=== PATIENT | male | born 1995 | race Caucasian/White ===

== ENCOUNTER 2024-09-06 10:19 | Emergency (ER) | payer SELFPAY ==
[2024-09-06 10:23] VITALS: BP 147/87; PULSE 84; RESP 17; TEMP 36.3; O2SAT 100; BMI 25.0
--- NOTE | 2024-09-06 10:34 | W.ED.MALEGU ---
HPI - Male Genitourinary General: Chief complaint: Urogenital-Male Stated complaint: urinary Time Seen by Provider: 09/06/24 10:32 Source: patient Mode of arrival: ambulatory Limitations: no limitations History of Present Illness: 29-year-old male states been having urinary retention. He states he has not been able to urinate since last night 730 states he is having lower abdominal pain feels like he needs to go. He states he had difficulty in the past but never to where he could not urinate. He denies any fever denies any dysuria. Associated symptoms: Deny nausea or vomiting Related Data Home Medications ?Medication ?Instructions ?Recorded ?Confirmed No Known Home Medications 09/06/24 09/06/24 Allergies Allergy/AdvReac Type Severity Reaction Status Date / Time No Known Allergies Allergy Verified 09/06/24 10:28 Review of Systems Const: Denies: fever(s), chills, body aches or change in appetite ENMT: Denies: throat pain or dental pain Card: Denies: chest pain Resp: Denies: dyspnea GI: Denies: abdominal pain, nausea, vomiting or diarrhea : Reports: difficulty urinating Musc: Denies: neck pain or back pain Skin/Breast: Denies: rash Neuro: Denies: headache(s) Physical Exam Const: COMMON NORMALS: no acute distress, patient oriented x3 and healthy appearing HENMT: COMMON NORMALS: normocephalic and atraumatic HEAD & SCALP: normocephalic and atraumatic Eye: COMMON NORMALS: conjunctivae normal CONJUNCTIVA: Yes conjunctivae normal Neck/C-Spine: COMMON NORMALS: full ROM and supple Chest: COMMONS NORMALS: normal inspection of the chest Resp: COMMON NORMALS: normal respiratory effort Cardio: COMMON NORMALS: regular rate RATE: regular rate GI: COMMON NORMALS: Normal to inspection, nondistended, normoactive bowel sounds present, Soft to palpation and no masses PALPATION: Yes Soft to palpation OTHER: tenderneess over bladder Extremity: COMMON NORMALS: normal to inspection and full ROM Neuro: COMMON NORMALS: patient oriented x3, moves all extremities and no focal motor deficits Psych: COMMON NORMALS: mental status grossly normal, Normal thought process present and cooperative THOUGHT PROCESS: Normal thought process present Skin: COMMON NORMALS: no rashes or lesions noted and no wounds GENERAL SKIN EXAM: no rashes or lesions noted Course Vital Signs: Vital signs: Vital Signs Temperature 97.4 F L 09/06/24 10:23 Pulse Rate 81 09/06/24 12:04 Respiratory Rate 17 09/06/24 10:23 Blood Pressure 134/88 09/06/24 12:04 Pulse Oximetry 97 09/06/24 12:04 Oxygen Delivery Me thod Room Air 09/06/24 12:04 MDM - Male Medical Decision Making Patient presents here with urinary retention not able to place a Moralez here did attempt multiple times kidney functions normal did speak to [facility] transfer patient there for higher level of care. Medical Records I reviewed the patient's medical records. Lab Data I reviewed the patient's lab results. 09/06/24 10:32 09/06/24 10:32 Laboratory Results WBC 5.95 10^3/uL (3.29-11.43) 09/06/24 10:32 RBC 4.92 10^6/uL (3.85-5.65) 09/06/24 10:32 Hgb 15.60 g/dL (11.27-16.99) 09/06/24 10:32 Hct 44.6 % (37-53) 09/06/24 10:32 MCV 90.7 fl (82-101) 09/06/24 10:32 MCH 31.7 pg (27-33) 09/06/24 10:32 MCHC 35.0 g/dL (30-55) 09/06/24 10:32 RDW 11.9 % (12.1-15.1) L 09/06/24 10:32 Plt Count 253 10^3/cmm (157-399) 09/06/24 10:32 MPV 8.5 fL (7.4-10.4) 09/06/24 10:32 Neut % (Auto) 55.0 % 09/06/24 10:32 Lymph % (Auto) 27.9 % 09/06/24 10:32 [place] % (Auto) 11.8 % 09/06/24 10:32 Eos % (Auto) 4.4 % 09/06/24 10:32 Baso % (Auto) 0.7 % 09/06/24 10:32 Neut # (Auto) 3.28 10^3/uL (1.8-7.7) 09/06/24 10:32 Lymph # (Auto) 1.7 10^3/uL (0.8-4.8) 09/06/24 10:32 [place] # (Auto) 0.7 10^3/uL (0.2-0.9) 09/06/24 10:32 Eos # (Auto) 0.3 10^3/uL (0.0-0.8) 09/06/24 10:32 Baso # (Auto) 0.0 10^3/uL (0.0-0.1) 09/06/24 10:32 Nucleated RBC % (auto) 0 % 09/06/24 10:32 Nucleated RBCs # 0.0 /100WBC 09/06/24 10:32 Sodium 141 mmol/L (136-145) 09/06/24 10:32 Potassium 4.1 mmol/L (3.5-5.1) 09/06/24 10:32 Chloride 104 mmol/L (98-107) 09/06/24 10:32 Carbon Dioxide 27 mmol/L (22-29) 09/06/24 10:32 Anion Gap 14.1 (5-19) 09/06/24 10:32 BUN 18 mg/dL (6-20) 09/06/24 10:32 Creatinine 0.8 mg/dL (0.7-1.2) 09/06/24 10:32 GFR Calculation 115.1 mL/min (90-130) 09/06/24 10:32 Glucose 70 mg/dL (65-115) 09/06/24 10:32 Calculated Osmolality 292 mOsm/kg (285-295) 09/06/24 10:32 Calcium 9.4 mg/dL (8.5-10.5) 09/06/24 10:32 No radiology studies performed this visit Discharge Plan Discharge Patient Disposition: Xfer Short-Term Hosp Clinical Impression: Acute retention of urine Condition: Stable Prescriptions: No Action No Known Home Medications Print Language: Slovenian Coding Level of Care Code ED Sorter Packer for Tono Rivas
[2024-09-06 10:41] LABS: Basophils % 0.7 %; Eosinophils # 0.3 10^3/uL (0.0-0.8); Eosinophils % 4.4 %; Hematocrit 44.6 % (37-53); Lymphocytes # 1.7 10^3/uL (0.8-4.8); Lymphocytes % 27.9 %; Mean Corpuscular Hemoglobin 31.7 pg (27-33); Mean Corpuscular Volume 90.7 fl (82-101); Mean Platelet Volume 8.5 fL (7.4-10.4); Monocytes # 0.7 10^3/uL (0.2-0.9); Monocytes % 11.8 %; Neutrophils # 3.28 10^3/uL (1.8-7.7); Nucleated Red Blood Cells % 0 %; Platelet Count 253 10^3/cmm (157-399); Red Blood Count 4.92 10^6/uL (3.85-5.65); Red Cell Distribution Width 11.9 % (12.1-15.1); White Blood Count 5.95 10^3/uL (3.29-11.43)
[2024-09-06 11:01] LABS: Anion Gap 14.1 (5-19); Blood Urea Nitrogen 18 mg/dL (6-20); Calcium 9.4 mg/dL (8.5-10.5); Carbon Dioxide 27 mmol/L (22-29); Chloride 104 mmol/L (98-107); Creatinine Clr Calc Pharmacy 133.5639; Glomerular Filtration Rate 115.1 mL/min (90-130); Glucose 70 mg/dL (65-115); Osmolality Calculated 292 mOsm/kg (285-295); Potassium 4.1 mmol/L (3.5-5.1); Sodium 141 mmol/L (136-145)
--- NOTE | 2024-09-06 12:02 | PC.NURSE ---
Pt report taken from Ebony RN at 1110. This nurse taken over cares of pt.
[2024-09-06 12:04] VITALS: BP 134/88; PULSE 81; O2SAT 97
--- NOTE | 2024-09-06 12:59 | PC.NURSE ---
pt bladder scan greater than 1200. Dr. Meraz notified.
[2024-09-06 13:22] VITALS: RESP 22; O2SAT 99
[2024-09-06] MEDS: morphine 4 mg/mL SDV 1 mL IVP (13:22)
[2024-09-06 13:27] VITALS: BP 120/73; PULSE 92; RESP 20; O2SAT 99
[2024-09-06] MEDS: LORazepam 2 mg/mL INJ 1 mL 1 MG IVP (13:27)
--- NOTE | 2024-09-06 13:38 | PC.NURSE ---
PT report ER to ER transfer called to Scar Cruz RN at [facility] at this time.
[2024-09-06 14:13] VITALS: BP 120/73; PULSE 92; O2SAT 97
== END 2024-09-06 14:10 | disposition short-term general hospital (02) ==
PROVIDERS: Emergency Provider Emergency Medicine
DX: R33.9 Retention of urine, unspecified (principal)
CPT/HCPCS: 80048; 85025; 96374; 96375; 99285; J2060; J2270

== ENCOUNTER 2025-04-30 17:46 | Emergency (ER) | payer BC, MEDICAID, SELFPAY ==
--- OUTSIDE RECORDS SUMMARY | 2025-04-24 14:40 | XMS_ITS | Encounter Summary ---
Author Organization [facility] Address [address] [place] [address] Care Team Providers Care Fixture Designer Name Role Phone Rich Allen MD Primary Care Provider [phone] Reason for Referral * MRI (Routine) - Closed Specialty Diagnoses / Procedures Referred By Contac t Referred To Contact Radiology Diagnoses Right knee pain, unspecified chronicity Procedures MRI KNEE WO CONTRAST RIGHT Amna Tarango FNP [address] [place] [address] Phone: tel: fax: [facility] [address] [place] [address] Phone: tel: fax: Referral ID Status Reason Start Date Expiration Date Visits Re quested Visits Authorized [id number] Closed 04/19/2025 07/17/2025 1 1 Reason for Visit * MRI (Routine) - Closed Specialty Diagnoses / Procedures Referred By Contac t Referred To Contact Radiology Diagnoses Right knee pain, unspecified chronicity Procedures MRI KNEE WO CONTRAST RIGHT Amna Tarango FNP [address] [place] [address] Phone: tel: fax: [facility] [address] [place] [address] Phone: tel: fax: Referral ID Status Reason Start Date Expiration Date Visits Re quested Visits Authorized [id number] Closed 04/19/2025 07/17/2025 1 1 Encounter Details Date Type Department Care Team (Late Contact Info) Description 04/24/2025 3:40 PM CDT - 04/24/2025 11:59 PM CDT Hospital Encounter [facility] [address] [facility] [address] [place] [phone] Amna Tarango, INSPECTION AND TESTING SUPERVISOR [address] [place] [phone] Discharge Disposition: Home or Self Care Social History Tobacco Use Types Packs/Day Years Used Date Smoking Tobacco: Former Cigarettes 0.5 5 Q uit: 06/16/2020 Alcohol Use Standard Drinks/Week Comments No 0 (1 standard drink = 0.6 oz pur e alcohol) Feeling Safe Answer Date Recorded Are you in a relationship wi th someone who hurts you emotionally and/or physically? No 03/26/2025 Sex and Gender Information Value Date Recorded Sex Assigned at Not on file Legal Sex Male 2:19 PM SQL CONSULTANT Gender Identity Not on file Sexual Orientation Not on file documented as of this encounter Plan of Treatment Upcoming Encounters Date Type Department Care Team (Late Contact Info) Description 05/02/2025 10:00 AM SQL CONSULTANT Video Visit [facility] Orthopedics - Orthopedic [facility] [address] [place] [phone] Ghassan Garcia [address] [place] [address] documented as of this encounter Procedures Procedure Name Priority Date/Time Associated Diagnosis Comments MRI KNEE WO CONTRAST RIGHT Routine 04/24/2025 5:16 PM CDT Right knee pain, unspecified chronicity documented in this encounter Results * MRI KNEE WO CONTRAST RIGHT (04/24/2025 5:16 PM CDT) Anatomical Region Laterality Modality Lower Extremity Magnetic Resonan ce 04/24/2025 5:17 PM CDT Impressions 04/25/2025 6:52 AM CDT IMPRESSION: Please see below. Exam: MRI KNEE WO CONTRAST RIGHT Date/Time of Exam: 04/24/2025 5:16 PM Reason For Exam: Knee pain, chronic, negative xray (Age >= 5y), knee pain. Diagnosis: Right knee pain, unspecified chronicity. Technique: MRI of the right knee was performed without the administration of intravenous contrast. Comparison: Radiographs from 03/26/2025. Findings: There is a physiologic amount of joint fluid. There is a mild degree of nonspecific subcutaneous soft tissue edema. There is no abnormal soft tissue fluid collection. There is no focal muscle abnormality. There is no significant popliteal cyst. The anterior cruciate ligament is intact. The posterior cruciate ligament is intact. There is a subacute appearing partial tear involving the superficial fibers of the medial collateral ligament with associated periligamentous edema. The lateral collateral ligamentous complex is intact. The extensor mechanism is intact. The medial meniscus appears intact without evidence of a discrete tear. The lateral meniscus appears intact without evidence of a discrete tear. The joints appear well-maintained without significant osteophyte formation. There is a mild degree of high-grade chondromalacia affecting the lateral patellar facet with associated reactive subcortical marrow signal abnormalities and cyst formation. There is a bone contusion involving the medial femoral condyle. There is no evidence of a discrete fracture. IMPRESSION: 1. Partial tear involving the superficial fibers of the medial collateral ligament. 2. Bone contusion involving the medial femoral condyle. 3. Mild high-grade chondromalacia patella. Narrative Procedure Note Sanket Golden, DO - 04/25/2025 IMPRESSION: Please see below. Exam: MRI KNEE WO CONTRAST RIGHT Date/Time of Exam: 04/24/2025 5:16 PM Reason For Exam: Knee pain, chronic, negative xray (Age >= 5y), knee pain. Diagnosis: Right knee pain, unspecified chronicity. Technique: MRI of the right knee was performed without the administration of intravenous contrast. Comparison: Radiographs from 03/26/2025. Findings: There is a physiologic amount of joint fluid. There is a mild degree of nonspecific subcutaneous soft tissue edema. There is no abnormal soft tissue fluid collection. There is no focal muscle abnormality. There is no significant popliteal cyst. The anterior cruciate ligament is intact. The posterior cruciate ligament is intact. There is a subacute appearing partial tear involving the superficial fibers of the medial collateral ligament with associated periligamentous edema. The lateral collateral ligamentous complex is intact. The extensor mechanism is intact. The medial meniscus appears intact without evidence of a discrete tear. The lateral meniscus appears intact without evidence of a discrete tear. The joints appear well-maintained without significant osteophyte formation. There is a mild degree of high-grade chondromalacia affecting the lateral patellar facet with associated reactive subcortical marrow signal abnormalities and cyst formation. There is a bone contusion involving the medial femoral condyle. There is no evidence of a discrete fracture. IMPRESSION: 1. Partial tear involving the superficial fibers of the medial collateral ligament. 2. Bone contusion involving the medial femoral condyle. 3. Mild high-grade chondromalacia patella. Amna Sumit Tarango [facility] MR ORDERABLES Final Result documented in this encounter Visit Diagnoses Diagnosis Right knee pain, unspecified chronicity documented in this encounter Additional Health Concerns Infection Onset Date Last Indicated Resolved Time MRSA Comment:Throat 08/27/11; Finger 04/21/11 04/23/2011 04/23/2011 documented as of this encounter Care Teams Fixture Designer Relationship Specialty Start Date End Date Rich Allen MD [address] [place] [address] PCP - General Family Practice 01/09/25 documented as of this encounter
--- OUTSIDE RECORDS SUMMARY | 2025-04-30 17:50 | XMS_ITS | Encounter Summary ---
Author Organization [facility] Address [address] [place] [address] Care Team Providers Care Stitch Bonding Machine Tender Name Role Phone Rich Allen MD Primary Care Provider Encounter Details Date Type Department Care Team (Late Contact Info) Description 06/04/2022 Lab Requisition [facility] [address] [place] [address] Scar Arenas MD [address] [phone] Social History Tobacco Use Types Packs/Day Years Used Date Smoking Tobacco: Never Alcohol Use Standard Drinks/Week Comments No 0 (1 standard drink = 0.6 oz pur e alcohol) Sex and Gender Information Value Date Recorded Sex Assigned at Not on file Legal Sex Male 2:19 PM MEDICAL INSURANCE CLAIMS SPECIALIST Gender Identity Not on file Sexual Orientation Not on file COVID-19 Exposure Response Date Recorded In the last 10 days, have yo u been in contact with someone who was confirmed or suspected to have Coronavirus/COVID-19? No / Unsure 06/04/2022 1:19 PM MEDICAL INSURANCE CLAIMS SPECIALIST documented as of this encounter Plan of Treatment Upcoming Encounters Date Type Department Care Team (Late Contact Info) Description 05/02/2025 10:00 AM MEDICAL INSURANCE CLAIMS SPECIALIST Video Visit [facility] Orthopedics - Orthopedic [facility] [address] [place] [phone] Ghassan Garcia PA [address] [place] [address] [place] [id number] documented as of this encounter Procedures Procedure Name Priority Date/Time Associated Diagnosis Comments COMPREHENSIVE METABOLIC PANEL Stat 06/04/2022 3:07 PM MEDICAL INSURANCE CLAIMS SPECIALIST CBC WITH DIFFERENTIAL Stat 06/04/2022 3:05 PM MEDICAL INSURANCE CLAIMS SPECIALIST documented in this encounter Results * (ABNORMAL) COMPREHENSIVE METABOLIC PANEL (06/04/2022 3:07 PM MEDICAL INSURANCE CLAIMS SPECIALIST) SODIUM 137 136 - 145 mmol/L 06/04/2022 4:55 PM [facility] POTASSIUM 4.1 3.5 - 5.1 mmol/L 06/04/2022 4:55 PM [facility] CHLORIDE 99 98 - 107 mmol/L 06/04/2022 4:55 PM [facility] CO2 28 22 - 29 mmol/L 06/04/2022 4:55 PM [facility] CALCIUM 9.8 8.6 - 10.0 mg/dL 06/04/2022 4:55 PM [facility] BUN 11 6 - 20 mg/dL 06/04/2022 4:55 PM [facility] CREATININE 1.08 0.67 - 1.17 mg/dL 06/04/2022 4:55 PM [facility] GLUCOSE 86 74 - 99 mg/dL 06/04/2022 4:55 PM [facility] TOTAL PROTEIN 7.4 6.4 - 8.3 g/dL 06/04/2022 4:55 PM [facility] ALBUMIN 5.1 3.5 - 5.2 g/dL 06/04/2022 4:55 PM [facility] BILIRUBIN TOTAL 4.0(H) 0.2 - 1.0 mg/dL 06/04/2022 4:55 PM [facility] ALKALINE PHOSPHATASE 56 40 - 129 U/L 06/04/2022 4:55 PM [facility] AST 22 10 - 50 U/L 06/04/2022 4:55 PM [facility] ALT 18 <=50 U/L 06/04/2022 4:55 PM [facility] GFR >60 >=60 mL/min/1.7 3 sq meter 06/04/2022 4:55 PM [facility] Comment:eGFR calculated with 2020 CKD-EPI equation. Vegetarian diet, extremely high or low muscle mass, and may affect results. Cystatin C with Glomerular Filtration Rate is a suitable alternative for these patients. ANION GAP 10 9 - 20 mmol/L 06/04/2022 4:55 PM [facility] Blood Collection / Unknown 06/04/2022 3:07 PM MEDICAL INSURANCE CLAIMS SPECIALIST 06/04/2022 4:21 PM MEDICAL INSURANCE CLAIMS SPECIALIST Scar Arenas MD CHEMISTRY ORDERABLES Final Result [facility] CLIA # [id number] [address] [place] [id number] * (ABNORMAL) CBC WITH DIFFERENTIAL (06/04/2022 3:05 PM MEDICAL INSURANCE CLAIMS SPECIALIST) WBC 7.3 4.5 - 11.0 K/uL 06/04/2022 4:30 PM [facility] RBC 5.33 4.60 - 6.20 M/uL 06/04/2022 4:30 PM [facility] HEMOGLOBIN 16.6 14.0 - 18.0 g/dL 06/04/2022 4:30 PM [facility] HEMATOCRIT 47.4 41.0 - 53.0 % 06/04/2022 4:30 PM [facility] MCV 88.9 84.0 - 103.0 fL 06/04/2022 4:30 PM [facility] MCH 31.1 27.0 - 34.0 pg 06/04/2022 4:30 PM [facility] MCHC 35.0 30.0 - 35.0 g/dL 06/04/2022 4:30 PM [facility] RDW 11.4 11.0 - 14.5 % 06/04/2022 4:30 PM [facility] RDW-STDEV 36.2(L) 37.0 - 54.0 fL 06/04/2022 4:30 PM [facility] PLATELETS 220 140 - 440 K/uL 06/04/2022 4:30 PM [facility] MPV 11.0 8.9 - 12.8 fL 06/04/2022 4:30 PM [facility] NEUTROPHILS 67 42 - 75 % 06/04/2022 4:30 PM [facility] LYMPHOCYTES 22(L) 24 - 44 % 06/04/2022 4:30 PM [facility] MONOCYTES 10 2 - 10 % 06/04/2022 4:30 PM [facility] EOSINOPHILS 1 0 - 7 % 06/04/2022 4:30 PM [facility] BASOPHILS 0 0 - 1 % 06/04/2022 4:30 PM [facility] IMMATURE GRANULOCYTES 0 0 - 2 % 06/04/2022 4:30 PM [facility] NEUTROPHIL ABSOLUTE 4.92 2.00 - 8.00 K/uL 06/04/2022 4:30 PM [facility] LYMPHOCYTE ABSOLUTE 1.62 1.20 - 4.00 K/uL 06/04/2022 4:30 PM [facility] MONOCYTE ABSOLUTE 0.70(H) 0.10 - 0.60 K/uL 06/04/2022 4:30 PM [facility] EOSINOPHIL ABSOLUTE 0.04 0.00 - 0.70 K/uL 06/04/2022 4:30 PM [facility] BASOPHILS ABSOLUTE 0.03 0.00 - 0.20 K/uL 06/04/2022 4:30 PM [facility] IMMATURE GRANULOCYTES ABSOLUTE 0.02 0.00 - 0.10 K/uL 06/04/2022 4:30 PM [facility] Blood Collection / Unknown 06/04/2022 3:05 PM MEDICAL INSURANCE CLAIMS SPECIALIST 06/04/2022 4:21 PM MEDICAL INSURANCE CLAIMS SPECIALIST us Scar Arenas MD HEMATOLOGY ORDERABLES Final Result [facility] # [id number] [address] [address] [place] [address] documented in this encounter Visit Diagnoses Not on filedocumented in this encounter Additional Health Concerns Infection Onset Date Last Indicated Resolved Time MRSA Comment:Throat 08/27/11; Finger 04/21/11 04/23/2011 04/23/2011 documented as of this encounter Care Teams Stitch Bonding Machine Tender Relationship Specialty Start Date End Date Rich Allen MD [address] [place] [address] [place] [phone] PCP - General Family Practice 01/09/25 documented as of this encounter
--- OUTSIDE RECORDS SUMMARY | 2025-04-30 17:50 | XMS_ITS | Clinical Summary ---
Author Organization [facility] Address [address] [facility] Attn: [place] [address] Care Team Providers Care Technical Instructor Course Developer Name Role Phone Rich Allen MD Primary Care Provider Allergies No known active allergies Medications No known medications Active Problems Problem Noted Date Diagnosed Date MRSA (methicillin resistant staph aureus) cultur e positive 08/27/2011 Dental caries 11/14/2009 Encounters Date Type Department Care Team Description 04/25/2025 Results Follow-Up [facility] [address] [place] [phone] Amna Tarango, SHERI MRI KNEE WO CONTRAST RIGHT 04/24/2025 3:40 PM CDT - 04/24/2025 11:59 PM CDT Hospital Encounter [facility] [address] [place] [phone] Amna Tarango, CRM COORDINATOR Discharge Disposition: Home or Self Care 04/24/2025 External Device Data STL ABSTRACTION Provider, Abstract 04/24/2025 External Device Data STL ABSTRACTION Provider, Abstract 04/06/2025 11:00 AM CDT Office Visit [facility] Orthopedics - Orthopedic [facility] [address] [place] [phone] Ghassan Garcia PA Sprain of anterior cruciate ligament of right knee, initial encounter (Primary Dx) 03/28/2025 4:00 PM CDT Office Visit [facility] [address] [place] [address] Amna Tarango, CRM COORDINATOR Right knee pain, unspecified chronicity (Primary Dx) 03/27/2025 External Device Data STL ABSTRACTION Provider, Abstract 03/27/2025 External Device Data STL ABSTRACTION Provider, Abstract 03/27/2025 External Device Data STL ABSTRACTION Provider, Abstract 03/26/2025 8:58 PM CDT - 03/26/2025 10:24 PM CDT Emergency [facility] Emergency Medicine [address] [place] [address] Ghassan Wyatt MD Sprain of medial collateral ligament of right knee, initial encounter (Primary Dx) Discharge Disposition: Home or Self Care 03/26/2025 Travel 02/15/2025 Results Follow-Up [facility] [address] [place] [address] Crystal Baker RN MRI ABDOMEN WO CONTRAST 02/14/2025 3:12 PM CDT - 02/14/2025 11:59 PM CDT Hospital Encounter [facility] [address] [place] [phone] Zulay Johnson FNP Discharge Disposition: Home or Self Care 02/06/2025 5:30 PM CDT Video Visit [facility] [address] [place] [address] Nicolasa Millan PA Dysuria (Primary Dx); Frequency of urination; Flank pain 02/06/2025 Patient Self-Triage [facility] [address] [place] [address] 02/01/2025 Telephone [facility] [address] [place] [phone] Krystal Parkinson, RN OTHER from Last 3 Months Immunizations Immunization Administration Dates Next Due (ADACEL/BOOSTRIX)(10 YR UP) TDAP VACCINE, 0.5ML, IM 02/06/2013 (INFANRIX)(6 WKS-6 YRS) DIPT HERIA, TETANUS TOXOIDS, AND ACCELLULAR PERTUSSIS VACCINE (DTAP), 0.5 ML IM 01/15/2010 (M-M-R II/PRIORIX)(12 MO UP) MEASLES, MUMPS AND RUBELLA VIRUS VACCINE, 0.5 ML IM/SUBCUT 02/21/2003,03/28/1997 (VARIVAX)(12 MOS UP)VARICELL A VIRUS VACCINE (PF) 0.5 ML, SUB CUT 02/21/2003 Dt Dtp Dtap Vaccine 02/21/2003, 8,1996,06/28,1996 HIB, Unspecified Formulation 07/12/1997, 1996,1996,04/28 HPV, Unspecified Formulation 09/29/2013,04/20/20 13,02/06/2013 Hepatitis A Vaccine 02/21/2003 Hepatitis A Vaccine Ped Adol IM 2 Dose VFC 01/27/2012 Hepatitis B Vaccine 03/28/1997,1996,1996 IPV/OPV 02/21/2003, 8,1996,04/28 Meningococcal MCV4, Unspecif ied Formulation 02/06/2013 Varicella Vaccine Live Sq VFC 01/27/2012 Family History Relation Name Status Comments Brother Alive Father Alive Mother Alive Sister Alive Social History Tobacco Use Types Packs/Day Years [...] on file 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 Gender Identity Not on file Sexual Orientation Not on file Last Filed Vital Signs Vital Sign Reading Time Taken Comments Blood Pressure 96/70 04/06/2025 10:53 AM CDT Pulse 90 03/28/2025 4:09 PM CDT Temperature 36.1 C (96.9 F) 03/28/2025 4:09 PM CDT Respiratory Rate 18 03/28/2025 4:09 PM CDT Oxygen Saturation 96% 03/28/2025 4:09 PM CDT Inhaled Oxygen Concentration - - Weight 72.6 kg (160 lb) 04/06/2025 10:53 AM CDT Height 170.2 cm (5' 7 ) 04/06/2025 10:53 AM CDT Body Mass Index 25.06 04/06/2025 10:53 AM CDT Plan of Treatment Upcoming Encounters Date Type Department Care Team (Late st Contact Info) Description 05/02/2025 10:00 AM COLORER MACHINE Video Visit [facility] Orthopedics - Orthopedic [facility] [address] [place] [address] Ghassan Garcia PA [address] [place] [address] [place] [id number] Health Maintenance Due Date Last Done Comments DTAP/TDAP/TD VACCINES (8 - T d or Tdap) 02/06/2023 02/06/2013, 01/15/2010, 02/21/2003, Additional history exists INFLUENZA VACCINE (#1) 2025 Preventative Visit-Managed Medicaid 01/10/2026 01/09/2025, 01/18/2012 HEPATITIS B VACCINES Completed 03/28/1997, 1996, 1996 HPV VACCINES Completed 09/29/2013, 03/29, 02/06/2013 Procedures Procedure Name Priority Date/Time Associated Diagnosis Comments MRI KNEE WO CONTRAST RIGHT Routine 04/24/2025 5:16 PM CDT Right knee pain, unspecified chronicity XR KNEE 4+ VW RIGHT Stat 03/26/2025 9 :15 PM CDT MRI ABDOMEN WO CONTRAST Routine 02/14/2025 4:21 PM CDT Renal lesion from Last 3 Months Results * MRI KNEE WO CONTRAST RIGHT [...] condyle. 3. Mild high-grade chondromalacia patella. Amna Tarango [facility] MR ORDERABLES Final Result * XR KNEE 4+ VW RIGHT (03/26/2025 9:15 PM CDT) Anatomical Region Laterality Modality Lower Extremity Computed Radiogr aphy 03/26/2025 9:15 PM CDT Impressions 03/26/2025 9:42 PM CDT IMPRESSION: See below. EXAMINATION: XR KNEE 4+ VW RIGHT ASSOCIATED DIAGNOSIS: Injury See Reason for Exam ORDERING PROVIDER: GHASSAN WYATT COMPARISON: None FINDINGS/IMPRESSION: No fracture or dislocation. Suboptimal lateral radiograph. Neutral patellar tracking. Narrative Procedure Note Kole Manzo MD - 03/26/2025 IMPRESSION: See below. EXAMINATION: XR KNEE 4+ VW RIGHT ASSOCIATED DIAGNOSIS: Injury See Reason for Exam ORDERING PROVIDER: GHASSAN WYATT COMPARISON: None FINDINGS/IMPRESSION: No fracture or dislocation. Suboptimal lateral radiograph. Neutral patellar tracking. us Ghassan Wyatt MD DIAGNOSTIC IMAGING ORDER KELLY Final Result * MRI ABDOMEN WO CONTRAST (02/14/2025 4:21 PM CDT) Anatomical Region Laterality Modality Abdomen Magnetic Resonan ce 02/14/2025 4:22 PM CDT Impressions 02/15/2025 8:36 AM CDT IMPRESSION: 1. No suspicious lesions seen in the right upper renal pole given noncontrast technique. This sonographic finding may have reflected an artifact. 2. Mild splenomegaly Narrative 02/15/2025 8:36 AM CDT MRI ABDOMEN WO CONTRAST Reason For Exam: Renal mass/cyst, indeterminate. Diagnosis: Renal lesion. COMPARISON: None FINDINGS: MRI ABDOMEN: LIVER: The liver is normal in size and intrinsic signal. No suspicious hepatic lesion is seen. The portal vein is patent. BILIARY AND GALLBLADDER: Fluid sensitive images do not reveal biliary dilatation, filling defect, or a cholangitic pattern. SPLEEN: The spleen is mildly enlarged. PERITONEUM: No ascites is seen. PANCREAS: The pancreas demonstrates normal intrinsic signal. The pancreatic duct is not dilated. KIDNEYS: No hydronephrosis. ADRENAL GLANDS: The adrenal glands are unremarkable. BOWEL: Bowel caliber is within normal limits without evidence of obstruction. LYMPH NODES: No retroperitoneal enlarged lymph nodes are seen. LUNG BASES: The included lung bases demonstrate no large focal lesions. Procedure Note Reggie Samson MD - 02/15/2025 MRI ABDOMEN WO CONTRAST Reason For Exam: Renal mass/cyst, indeterminate. Diagnosis: Renal lesion. COMPARISON: None FINDINGS: MRI ABDOMEN: LIVER: The liver is normal in size and intrinsic signal. No suspicious hepatic lesion is seen. The portal vein is patent. BILIARY AND GALLBLADDER: Fluid sensitive images do not reveal biliary dilatation, filling defect, or a cholangitic pattern. SPLEEN: The spleen is mildly enlarged. PERITONEUM: No ascites is seen. PANCREAS: The pancreas demonstrates normal intrinsic signal. The pancreatic duct is not dilated. KIDNEYS: No hydronephrosis. ADRENAL GLANDS: The adrenal glands are unremarkable. BOWEL: Bowel caliber is within normal limits without evidence of obstruction. LYMPH NODES: No retroperitoneal enlarged lymph nodes are seen. LUNG BASES: The included lung bases demonstrate no large focal lesions. IMPRESSION: 1. No suspicious lesions seen in the right upper renal pole given noncontrast technique. This sonographic finding may have reflected an artifact. 2. Mild splenomegaly Zulay Johnson [facility] MR ORDERABLES Final Result from Last 3 Months Additional Health Concerns Infection Onset Date Last Indicated MRSA Comment:Throat 08/27/11; Finger 04/21/11 04/23/2011 04/23/2011 Insurance [facility] MEDICAID Care Teams Technical Instructor Course Developer Relationship Specialty Start Date End Date Rich Allen MD [address] [place] [address] [place] [phone] PCP - General Family Practice 01/09/25
--- OUTSIDE RECORDS SUMMARY | 2025-04-30 17:50 | XMS_ITS | Encounter Summary ---
Author Organization [facility] Address 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 Gender Identity Not on file Sexual Orientation Not on file documented as of this encounter Plan of Treatment Upcoming Encounters Date Type Department Care Team (Late Contact Info) Description 05/02/2025 10:00 AM SENIOR EMBEDDED SOFTWARE ENGINEER Video Visit [facility] Orthopedics - [facility] [address] [place] [phone] Ghassan Garcia PA [address] [place] [address] [place] [address] documented as of this encounter Visit Diagnoses Not on filedocumented in this encounter Additional Health Concerns Infection Onset Date Last Indicated Resolved Time MRSA Comment:Throat 08/27/11; Finger 04/21/11 04/23/2011 04/23/2011 documented as of this encounter Care Teams Mobile Homes Repairer Relationship Specialty Start Date End Date Rich Allen MD [address] [place] [address] [place] [address] PCP - General Family Practice 01/09/25 documented as of this encounter
--- OUTSIDE RECORDS SUMMARY | 2025-04-30 17:50 | XMS_ITS | Patient Health Record ---
Author Organization [facility] Address [address] [place] [address] Care Team Providers Care Equity Research Analyst Name Role Phone Juan Roldan Unavailable [phone] Allergies No Known Allergies Results Component Value Reference Range Notes Retrograde Urography Reviewed date:09/15/2024 10:49:45 AM Interpretation: Performing Lab: Notes/Report: [id number] Retrograde Urography Reviewed date:09/07/2024 09:21:09 PM Interpretation: Performing Lab: Notes/Report: See Below For Report Retrograde Urography going to OR Read See Below For Report Reason For Referral No Information Medications Medication SIG (Take, Route, Frequency, Duration) Notes Start Date End Date Status Amoxicillin 500 MG Capsule 1 capsule by mouth three times a day 09/14/2024 Active Social History Tobacco Use: Social History Observation Description Date Details (start date - stop date) Former Smoker NA - NA Social History Tobacco Use: Social Info Question Answer Notes Tobacco Control (Standard) Tobacco use: Former smoker Problems Problem Type SNOMED Code ICD Code Onset Dates Problem Status W/U Status Risk Notes Problem Stricture of bulbar urethra (disorder) (0954462654) 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 Vital Signs Temperature 98 degrees Fahrenheit 09/14/2024 Height-cm 170.18 cm 09/14/2024 Weight-kg 72.76 kg 09/14/2024 Height 67 in 09/14/2024 Weight 160.4 lbs 09/14/2024 BMI 25.12 kg/m2 09/14/2024 Encounters Encounter Location Date Provider Diagnosis [facility] [address] [place] [address] [address] [place] [address] 09/14/2024 Juan Roldan Encounter for fittin g and adjustment of urinary device Z46.6 [facility] [address] [place] [address] [address] [place] [address] 09/13/2024 Juan Batistasay [facility] [address] [place] [address] 09/08/2024 Juan Roldan [facility] [address] [place] [address] [address] [place] [address] 09/21/2024 Juan Roldan [facility] [address] [place] [address] 09/14/2024 Juan Roldan Assessments Encounter Date Diagnosis (ICD Code) Assessment Notes Treatment Notes Treatment Clinical Notes Section Notes 09/14/2024 Encounter for fitting and adjustment of urinary device (ICD-10 - Z46.6) Plan Of Treatment No Information Insurance Providers Payer Name Payer Address Payer Phone Subscriber Number Group Number Insured Name Patient Relationship to Insured Coverage Start Date Coverage End Date [place] [address] [place] [address] [id number] Lopez Chery Self - patient is the insured 5 [facility] Medicaid Replacement [address] [address] [place] [address] [id number] Lopez Chery Self - patient is the insured 5 Medical (General) History Surgical History Surgery Date(Month/Year) Hand Wrist
--- OUTSIDE RECORDS SUMMARY | 2025-04-30 17:50 | XMS_ITS | Encounter Summary ---
Author Organization [facility] Address [address] [place] [address] Care Team Providers Care Speech Pathology Supervisor Name Role Phone Rich Allen MD Primary Care Provider Encounter Details Date Type Department Care Team (Late Contact Info) Description 06/04/2022 Lab Requisition [facility] Services [address] [place] [address] Scar Arenas MD [address] [phone] Social History Tobacco Use Types Packs/Day Years Used Date Smoking Tobacco: Never Alcohol Use Standard Drinks/Week Comments No 0 (1 standard drink = 0.6 oz pur e alcohol) Sex and Gender Information Value Date Recorded Sex Assigned at Not on file 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 No / Unsure 06/04/2022 1:19 PM WELDING MACHINE OPERATOR ARC documented as of this encounter Plan of Treatment Upcoming Encounters Date Type Department Care Team (Late Contact Info) Description 05/02/2025 10:00 AM WELDING MACHINE OPERATOR ARC Video Visit [facility] Orthopedics - Orthopedic [facility] [address] [place] [phone] Ghassan Garcia PA [address] [place] [address] [place] [address] documented as of this encounter Procedures Procedure Name Priority Date/Time Associated Diagnosis Comments BILIRUBIN DIRECT Stat 06/04/2022 5:44 PM WELDING MACHINE OPERATOR ARC documented in this encounter Results * BILIRUBIN DIRECT (06/04/2022 5:44 PM WELDING MACHINE OPERATOR ARC) BILIRUBIN DIRECT <0.2 0.0 - 0.2 mg/dL 06/04/2022 6:40 PM WELDING MACHINE OPERATOR ARC [facility] Blood Capillary / Unknown 06/04/2022 5:44 PM WELDING MACHINE OPERATOR ARC 06/04/2022 6:03 PM WELDING MACHINE OPERATOR ARC Scar Arenas MD CHEMISTRY ORDERABLES Final Result [facility] CLIA # [id number] [facility] [address] documented in this encounter Visit Diagnoses Not on filedocumented in this encounter Additional Health Concerns Infection Onset Date Last Indicated Resolved Time MRSA Comment:Throat 08/27/11; Finger 04/21/11 04/23/2011 04/23/2011 documented as of this encounter Care Teams Speech Pathology Supervisor Relationship Specialty Start Date End Date Rich Allen MD [address] [place] [address] PCP - General Family Practice 01/09/25 documented as of this encounter
--- OUTSIDE RECORDS SUMMARY | 2025-04-30 17:50 | XMS_ITS | Encounter Summary ---
Author Organization [facility] Address 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 Gender Identity Not on file Sexual Orientation Not on file documented as of this encounter Plan of Treatment Upcoming Encounters Date Type Department Care Team (Late Contact Info) Description 05/02/2025 10:00 AM WATCH ASSEMBLER Video Visit [facility] Orthopedics - Orthopedic [facility] [address] [place] [phone] Ghassan Garcia PA [address] [place] [address] [place] [address] documented as of this encounter Visit Diagnoses Not on filedocumented in this encounter Additional Health Concerns Infection Onset Date Last Indicated Resolved Time MRSA Comment:Throat 08/27/11; Finger 04/21/11 04/23/2011 04/23/2011 documented as of this encounter Care Teams Room Clerk Relationship Specialty Start Date End Date Rich Allen MD [address] [place] [address] [place] [phone] PCP - General Family Practice 01/09/25 documented as of this encounter
--- OUTSIDE RECORDS SUMMARY | 2025-04-30 17:50 | XMS_ITS | Encounter Summary ---
Author Organization [facility] Address 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 Gender Identity Not on file Sexual Orientation Not on file documented as of this encounter Plan of Treatment Upcoming Encounters Date Type Department Care Team (Late Contact Info) Description 05/02/2025 10:00 AM LOG STACKER OPERATOR Video Visit [facility] Orthopedics - Orthopedic [facility] [address] [place] [phone] Ghassan Garcia PA [address] [place] [address] [place] [address] documented as of this encounter Visit Diagnoses Not on filedocumented in this encounter Additional Health Concerns Infection Onset Date Last Indicated Resolved Time MRSA Comment:Throat 08/27/11; Finger 04/21/11 04/23/2011 04/23/2011 documented as of this encounter Care Teams Fishing Reel Assembler Relationship Specialty Start Date End Date Rich Allen MD [address] [place] [address] [place] [phone] PCP - General Family Practice 01/09/25 documented as of this encounter
[2025-04-30 18:01] VITALS: BP 151/108; PULSE 85; RESP 16; TEMP 36.7; O2SAT 98
[2025-04-30 19:13] LABS: Hematocrit 42.5 % (37-53); Hemoglobin 15.50 g/dL (11.27-16.99); Mean Corpuscular HGB Conc 36.5 g/dL (30-55); Mean Corpuscular Hemoglobin 30.9 pg (27-33); Mean Corpuscular Volume 84.7 fl (82-101); Nucleated Red Blood Cells % 0 %; Platelet Count 212 10^3/cmm (157-399); Red Blood Count 5.02 10^6/uL (3.85-5.65); White Blood Count 9.29 10^3/uL (3.29-11.43)
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
[2025-04-30 19:36] LABS: Alanine Aminotransferase 19 U/L (0-41); Albumin Level 5.0 g/dL (3.5-5.2); Alkaline Phosphatase 59 U/L (40-130); Anion Gap 16.9 (5-19); Aspartate Amino Transferase 25 U/L (0-40); Blood Urea Nitrogen 15 mg/dL (6-20); Calcium 10.0 mg/dL (8.5-10.5); Carbon Dioxide 25 mmol/L (22-29); Chloride 101 mmol/L (98-107); Creatinine Clr Calc Pharmacy 96.2701; Globulin 2.6 g/dL (1.3-4.6); Glucose 92 mg/dL (65-115); Osmolality Calculated 288 mOsm/kg (285-295); Potassium 3.9 mmol/L (3.5-5.1); Sodium 139 mmol/L (136-145); Total Protein 7.6 g/dL (6.6-8.7)
[2025-04-30 19:58] VITALS: BP 139/92; PULSE 77; RESP 12; O2SAT 97
== END 2025-04-30 19:59 | disposition home or self-care (01) ==
PROVIDERS: Emergency Provider Emergency Medicine
DX: T59.811A Toxic effect of smoke, accidental (unintentional), initial encounter (principal); X58.XXXA Exposure to other specified factors, initial encounter
CPT/HCPCS: 36415; 80053; 85025; 99283